=== PATIENT | male | born 1950 | race Caucasian/White ===

== ENCOUNTER 2022-11-07 11:00 | Outpatient (RCR) | payer MEDICARE | END 2022-11-08 | LOC: RESP 11:00 | PROVIDERS: ATTEND Family Medicine | DX: J44.9 Chronic obstructive pulmonary disease, unspecified (principal) | CPT/HCPCS: 94626 ×5; 94799; G0238 ×5 ==

== ENCOUNTER → 2022-12-06 | Outpatient (CLI) | payer MEDICARE | LOC: RESP 12-02 09:46 | PROVIDERS: ATTEND Family Medicine | DX: R06.09 Other forms of dyspnea (principal) | CPT/HCPCS: 94060; 94727; 94729 ==

== ENCOUNTER 2022-12-12 16:16 | Outpatient (RCR) | payer MEDICARE | END 2023-01-08 | LOC: RESP 16:16 | PROVIDERS: ATTEND Family Medicine | DX: N40.0 Benign prostatic hyperplasia without lower urinary tract symptoms (principal); E78.2 Mixed hyperlipidemia; I73.9 Peripheral vascular disease, unspecified; Z72.0 Tobacco use | CPT/HCPCS: 94626 ×10; G0238 ×10 ==

== ENCOUNTER 2023-01-09 12:26 | Outpatient (RCR) | payer MEDICARE | END 2023-02-08 | LOC: RESP 12:26 | PROVIDERS: ATTEND Family Medicine | DX: J44.9 Chronic obstructive pulmonary disease, unspecified (principal) | CPT/HCPCS: 94626 ×9; G0238 ×9 ==